=== PATIENT | male | born 1945 | race Caucasian/White ===

== ENCOUNTER 2017-10-01 17:36 | Emergency (ER) | payer OTHER ==
[2017-10-01 17:41] VITALS: BMI 29.8
--- NOTE | 2017-10-01 18:24 | DR.GENAD ---
HPI - PCP Primary Care Physician: THOR - Complaint/Symptoms Chief Complaint Doctors Comments: hurting in left lower ribs since yesterday. He describes this as intermittent, and sharp/throbbing. He denies sob or cough. There is no exacerbating or relieving factor. Chief Complaint:: PT. C/O PAIN IN LEFT SIDE BELOW RIB CAGE WHICH BEGAN YESTERDAY. - Nurses notes reviewed Nurses Notes Review: Yes - Source History Provided: Patient - Mode of Arrival Mode of Arrival: Ambulatory - Timing Onset of Chief Complaint: 09/30/17 Came on: Gradually PMH - PMH Past Medical History: Yes Past Medical History: Arthritis, COPD, Coronary Artery Disease, Diabetes, Gout, Hypertension, [place], Renal Disease Past Medical History Comment: ABSTESOS Past Surgical History: Yes Surgical History: CABG/Valve Surgery, Tonsillectomy, Other Past Surgical History Comment: CERVICAL FUSION, WRIST - Family History History of Family Medical Conditions: Yes Family Medical History: Diabetes Mellitus, [place], Coronary Artery Disease - Social History Does patient currently use any type of tobacco product: No Have you used tobacco products in the last 12 months: No Type of Tobacco Use: None Does any household member use tobacco: No Alcohol Use: None Do you use any recreational Drugs:: No Lives With: Spouse Lives Where: Home - infectious screening In the last 2 months have you had wt loss of >10#?: NO Have you had fever, night sweats or hemotysis?: No Have you traveled outside the country in the last 6 months?: No Isolation: Standard ROS - Review of Systems Constitutional: No Symptoms Reported Eyes: No Symptoms Reported ENTM: No Symptoms Reported Respiratoy: No Symptoms Reported Cardiovascular: No Symptoms Reported Gastrointestinal/Abdominal: No Symptoms Reported Genitourinary: No Symptoms Reported Neurological: No Symptoms Reported Musculoskeletal: Rib(s) (left) Integumentary: No Symptoms Reported Hematologic/Lymphatic: No Symptoms Reported Endocrine: No Symptoms Reported Psychiatric: No Symptoms Reported All Other Systems: Reviewed and Negative PE - Vital Signs Vitals: Temperature 98.7 F Pulse Rate 60 Respiratory Rate 17 Blood Pressure 188/76 O2 Sat by Pulse Oximetry 97 - General Limitations: No Limitations General Appearance: Alert, In No Apparent Distress - Head Head Exam: Normal Inspection - Eyes Eye exam: Normal Appearance - ENT ENT Exam: Normal Exam - Neck Neck Exam: Normal Inspection - Chest Chest Inspection: Normal Inspection - Respiratory Respiratory Exam: Normal Lung Sounds Bilat - Cardiovascular Cardiovascular Exam: Regular Rate, Normal Rhythm - Abdominal Exam Abdominal Exam: Normal Inspection, Normal Bowel Sounds, Soft - Extremities Extremities Exam: Normal Inspection - Back Back Exam: Normal Inspection - Neurologic Neurological Exam: Alert, Oriented X3 - Psychiatric Psychiatric Exam: Normal Affect, Normal Mood - Skin Skin Exam: Warm, Dry, Intact, Normal Color ROR - Labs Reviewed Laboratory: Specimen Type Clean catch urine 10/01/17 19:34 Urine Color Yellow (YELLOW) 10/01/17 19:34 Urine Appearance Clear (CLEAR) 10/01/17 19:34 Urine pH 5.0 (5.0 - 8.0) 10/01/17 19:34 Ur Specific [place] 1.020 (1.000-1.030) 10/01/17 19:34 Urine Protein 4+ (NEGATIVE) 10/01/17 19:34 Urine Glucose (UA) Negative (NEGATIVE) 10/01/17 19:34 Urine Ketones Negative (NEGATIVE) 10/01/17 19:34 Urine Occult Blood 1+ (NEGATIVE) 10/01/17 19:34 Urine Nitrite Negative (NEGATIVE) 10/01/17 19:34 Urine Bilirubin Negative (NEGATIVE) 10/01/17 19:34 Urine Urobilinogen Normal (NORMAL) 10/01/17 19:34 Ur Leukocyte Esterase Negative (NEGATIVE) 10/01/17 19:34 Urine RBC None seen /HPF (NONE SEEN) 10/01/17 19:34 Urine WBC None seen /HPF (NONE SEEN) 10/01/17 19:34 Ur Squamous Epith Cells Rare /HPF (NEGATIVE) 10/01/17 19:34 Amorphous Sediment Trace /HPF (NEGATIVE) 10/01/17 19:34 Urine Bacteria Negative /HPF (NEGATIVE) 10/01/17 19:34 Ur Culture Indicated? No/not indicated 10/01/17 19:34 - XRAY XRAY Interpreted by: Radiologist (s/p CABG, no acute rib fx. Pleural deformity at Lt. base - pleural thickening vs. effusion.) - Diagnosis Discharge Problem: Pleuritic chest pain, Pleural thickening - Discharge Plan Disposition: HOME, SELF-CARE Condition: Stable - Follow ups/Referrals Follow ups/Referrals: TAMMIE MCRAE [Primary Care Provider] - 3 days - Instructions Instructions: Chest Wall Pain, [id number]
[2017-10-01] MEDS ORDERED: NORCO 5/325 MG TAB PO ONE (19:00)
--- NOTE | 2017-10-01 19:12 | RAD ---
Examination: Chest and left ribs, five views History: Pain in left side, diabetes and hypertension Comparison reference: None Findings: Heart size normal with sternal wires, clear lungs. No pneumothorax seen. There is blunting deformity of the left costophrenic angle. No acute fracture or bone destruction is noted in the left ribs. Impression: Status post CABG. No acute rib fracture demonstrated. Pleural deformity at the left base may represent chronic pleural thickening or a small left pleural effusion. Reported By:
[2017-10-01] MEDS ORDERED: NORCO 5/325 MG TAB ONE (19:31)
[2017-10-01 19:48] LABS: BILIRUBIN,URINE NEGATIVE (NEGATIVE); BLOOD/HEMOGLOBIN,URINE 1+ (NEGATIVE); GLUCOSE, URINE NEGATIVE (NEGATIVE); KETONES,URINE NEGATIVE (NEGATIVE); LEUKOCYTE ESTERASE ,URINE NEGATIVE (NEGATIVE); NITRITES,URINE NEGATIVE (NEGATIVE); PROTEIN,URINE 4+ (NEGATIVE); UROBILINOGEN,URINE NORMAL (NORMAL)
[2017-10-01 19:53] LABS: APPEARANCE,URINE CLEAR (CLEAR); COLOR,URINE YELLOW (YELLOW)
[2017-10-01 20:00] LABS: RBC,URINE NONE SEEN /HPF (NONE SEEN); SQUAMOUS EPITHELIAL CELL,UR RARE /HPF (NEGATIVE)
[2017-10-01 20:01] LABS: AMORPHOUS SEDIMENT,UR TRACE /HPF (NEGATIVE); BACTERIA,URINE NEGATIVE /HPF (NEGATIVE)
[2017-10-01 20:21] VITALS: BP 168/86
== END 2017-10-01 20:21 | disposition home or self-care (01) ==
LOC: ER 17:49
DX: R07.81 Pleurodynia (principal); J94.8 Other specified pleural conditions; Z95.1 Presence of aortocoronary bypass graft
CPT/HCPCS: 71111; 81001; 99282

== ENCOUNTER 2019-07-22 09:08 | Observation (INO) ==
[~2019-07-22 09:08] MED LIST: ATROPINE SULFATE ONE; DIPRIVAN VIAL ONE; NEOSTIGMINE INJ ONE; NORCURON INJ 10 MG VIAL ONE; QUELICIN (OR ANECTINE) ONE; ROBINUL ONE; SUPRANE ONE; VERSED ONE; ZOFRAN INJ 4 MG VIAL ONE
[2019-07-22 09:26] VITALS: BMI 30.5
[2019-07-22 10:41] LABS: BASOPHILS # (AUTO) 0.1 X10^3/uL (0.0-0.1); BASOPHILS % (AUTO) 0.5 % (0.2-1.0); EOSINOPHILS % (AUTO) 0.3 % (0.9-2.9); HEMATOCRIT 37.6 % (42.0-54.0); HEMOGLOBIN 12.4 g/dL (13.5-18.0); LYMPHOCYTES % (AUTO) 7.5 % (21.0-51.0); MEAN CORPUSCULAR HEMOGLOBIN 28.7 pg (27.0-34.0); MEAN CORPUSCULAR VOLUME 87.1 fL (80.0-100.0); MEAN PLATELET VOLUME 6.7 fL (7.4-11.0); MONOCYTES # (AUTO) 0.7 x10^3/uL (0.3-0.8); MONOCYTES % (AUTO) 5.5 % (0.0-13.0); NEUTROPHILS % (AUTO) 86.2 % (42.0-75.0); PLATELET COUNT 188 X10^3/uL (150.0-450.0); RED BLOOD COUNT 4.32 X10^6/uL (4.7-6.0); RED CELL DISTRIBUTION WIDTH 14.7 % (11.6-16.5); WHITE BLOOD COUNT 12.7 X10^3/uL (3.6-10.0)
[2019-07-22 10:52] LABS: ALANINE AMINOTRANSFERASE 25 Units/L (12-78); ALBUMIN 3.7 g/dL (3.4-5.0); ALKALINE PHOSPHATASE 75 Units/L (46-116); AMYLASE 83 Units/L (25-115); ASPARTATE AMINO TRANSFERASE 33 Units/L (15-37); BLOOD UREA NITROGEN 25 mg/dL (7-18); CALCIUM 8.4 mg/dL (8.5-10.1); CARBON DIOXIDE 27.6 mmol/L (21-32); CHLORIDE 104 mmol/L (98-107); COR NA(FOR HYPERGLY) 141 mmol/L (136-145); CREATININE 2.11 mg/dL (0.70-1.30); LIPASE 253 Units/L (73-393); SODIUM 139 mmol/L (136-145); TOTAL PROTEIN 7.2 g/dL (6.4-8.2); eGFR NON BLACK RACES 33 (>60)
--- NOTE | 2019-07-22 12:16 | DR.ABDMALE ---
HPI Time seen Time Seen by Provider: 07/22/19 10:12 PCP Primary Care Physician: THOR Christie Chief Complaint:: HURTING ON RIGHT SIDE, WOKE UP AT 4 AM HURTING LIKE HELL IN RIGHT SIDE. TRIED TO GO TO BATHROOM WIHT NO SUCCESS. DENIES PAIN OR BURNING WHEN URINATE. Mode of arrival Mode of Arrival: Ambulatory Timing Onset of Chief Complaint: 07/22/19 PMH PMH Past Medical History: Yes Past Medical History: Arthritis, COPD, Coronary Artery Disease, Diabetes, Gout, Hypertension, [place] and Renal Disease Past Surgical History: Yes Surgical History: CABG/Valve Surgery, Ortho Surgery, Tonsillectomy and Other Past Surgical History Comment: SPINAL INFUSION, WRIST, SHOULDER Family History History of Family Medical Conditions: Yes Family Medical History: Diabetes Mellitus, [place] and Coronary Artery Disease Social History Does any household member use tobacco: No Alcohol Use: None Do you use any recreational Drugs:: No Lives With: Spouse Lives Where: Home infectious screening In the last 2 months have you had wt loss of >10#?: NO Have you had fever, night sweats or hemotysis?: No Have you traveled outside the country in the last 6 months?: No Isolation: Standard ROS Review of Systems Constitutional: No Symptoms Reported ENTM: No Symptoms Reported Respiratoy: No Symptoms Reported Cardiovascular: No Symptoms Reported Gastrointestinal/Abdominal: Abdominal Pain Genitourinary: No Symptoms Reported Neurological: No Symptoms Reported Musculoskeletal: No Symptoms Reported PE Vital Signs Vital Signs: Temp Pulse Resp BP BP Pulse Ox 07/22/19 17:29 99 07/22/19 12:28 22 07/22/19 09:22 97.4 F L 58 L 20 134/63 100 10/01/17 20:21 168/86 General Limitations: No Limitations General Appearance: Alert and In No Apparent Distress Head Head Exam: Normal Inspection Eyes Eye exam: Normal Appearance Neck Neck Exam: Normal Inspection Respiratory Respiratory Exam: Normal Lung Sounds Bilat Respiratory Exam: Bilateral: Clear to Auscultation Cardiovascular Cardiovascular Exam: Regular Rate Abdominal Exam Abdominal Exam: Normal Bowel Sounds, Soft and Tenderness Abdominal Tenderness: RLQ and Moderate Back Back Exam: Normal Inspection Neurologic Neurological Exam: Alert, Oriented X3 and CN II-XII Intact Skin Skin Exam: Warm and Dry COURSE Treatment Treatment: Zosyn 3.375mg IV ( appendicitis) Care was assumed by the surgeon and patient left the ED at 14:08 ROR Labs Reviewed Result Diagrams: 07/22/19 10:36 07/22/19 10:36 Laboratory: WBC 12.7 X10^3/uL (3.6-10.0) H 07/22/19 10:36 RBC 4.32 X10^6/uL (4.7-6.0) L 07/22/19 10:36 Hgb 12.4 g/dL (13.5-18.0) L 07/22/19 10:36 Hct 37.6 % (42.0-54.0) L 07/22/19 10:36 MCV 87.1 fL (80.0-100.0) 07/22/19 10:36 MCH 28.7 pg (27.0-34.0) 07/22/19 10:36 MCHC 33.0 g/dL (33.0-35.0) 07/22/19 10:36 RDW 14.7 % (11.6-16.5) 07/22/19 10:36 Plt Count 188 X10^3/uL (150.0-450.0) 07/22/19 10:36 MPV 6.7 fL (7.4-11.0) L 07/22/19 10:36 Neut % (Auto) 86.2 % (42.0-75.0) H 07/22/19 10:36 Lymph % (Auto) 7.5 % (21.0-51.0) L 07/22/19 10:36 [place] % (Auto) 5.5 % (0.0-13.0) 07/22/19 10:36 Eos % (Auto) 0.3 % (0.9-2.9) L 07/22/19 10:36 Baso % (Auto) 0.5 % (0.2-1.0) 07/22/19 10:36 Neut # (Auto) 11.0 x10^3/uL (2.2-4.8) H 07/22/19 10:36 Lymph # (Auto) 1.0 X10^3/uL (1.3-2.9) L 07/22/19 10:36 [place] # (Auto) 0.7 x10^3/uL (0.3-0.8) 07/22/19 10:36 Eos # (Auto) 0.0 x10^3/uL (0.0-0.2) 07/22/19 10:36 Baso # (Auto) 0.1 X10^3/uL (0.0-0.1) 07/22/19 10:36 Absolute Nucleated RBC 0.0 /100WBC 07/22/19 10:36 Sodium 139 mmol/L (136-145) 07/22/19 10:36 Corrected Sodium 141 mmol/L (136-145) 07/22/19 10:36 Potassium 3.8 mmol/L (3.5-5.1) 07/22/19 10:36 Chloride 104 mmol/L (98-107) 07/22/19 10:36 Carbon Dioxide 27.6 mmol/L (21-32) 07/22/19 10:36 BUN 25 mg/dL (7-18) H 07/22/19 10:36 Creatinine 2.11 mg/dL (0.70-1.30) H 07/22/19 10:36 Est GFR (MDRD) Af Amer 40 (>60) L 07/22/19 10:36 Est GFR (MDRD) Non-Af 33 (>60) L 07/22/19 10:36 Glucose 176 mg/dL (65-99) H 07/22/19 10:36 POC Glucose (mg/dL) 165 mg/dL (65-99) H 07/22/19 13:47 Calcium 8.4 mg/dL (8.5-10.1) L 07/22/19 10:36 Corrected Calcium TNP 07/22/19 10:36 Total Bilirubin 0.30 mg/dL (0.2-1.0) 07/22/19 10:36 AST 33 Units/L (15-37) 07/22/19 10:36 ALT 25 Units/L (12-78) 07/22/19 10:36 Alkaline Phosphatase 75 Units/L (46-116) 07/22/19 10:36 Total Protein 7.2 g/dL (6.4-8.2) 07/22/19 10:36 Albumin 3.7 g/dL (3.4-5.0) 07/22/19 10:36 Globulin 3.5 g/dL (2.5-4.5) 07/22/19 10:36 Albumin/Globulin Ratio 1.1 Ratio (1.1-2.1) 07/22/19 10:36 Amylase 83 Units/L (25-115) 07/22/19 10:36 Lipase 253 Units/L (73-393) 07/22/19 10:36 Specimen Type Random urine 07/22/19 12:23 Urine Color Yellow (YELLOW) 07/22/19 12:23 Urine Appearance Hazy (CLEAR) 07/22/19 12:23 Urine pH 5.0 (5.0 - 8.0) 07/22/19 12:23 Ur Specific [place] 1.020 (1.000-1.030) 07/22/19 12:23 Urine Protein 4+ (NEGATIVE) 07/22/19 12:23 Urine Glucose (UA) 4+ (NEGATIVE) 07/22/19 12:23 Urine Ketones 1+ (NEGATIVE) 07/22/19 12:23 Urine Occult Blood 2+ (NEGATIVE) 07/22/19 12:23 Urine Nitrite Negative (NEGATIVE) 07/22/19 12:23 Urine Bilirubin Negative (NEGATIVE) 07/22/19 12:23 Urine Urobilinogen Normal (NORMAL) 07/22/19 12:23 Ur Leukocyte Esterase Negative (NEGATIVE) 07/22/19 12:23 Urine RBC 0-2 /HPF (0-3) 07/22/19 12:23 Urine WBC None seen /HPF (0-5) 07/22/19 12:23 Ur Squamous Epith Cells Negative /HPF (NEGATIVE) 07/22/19 12:23 Urine Bacteria Negative /HPF (NEGATIVE) 07/22/19 12:23 Urine Mucus Few /HPF (NEGATIVE) 07/22/19 12:23 Ur Culture Indicated? No/not indicated 07/22/19 12:23 Opioid Opioid Risk Tool Total: 0 Total Score Risk Category: Low Risk Copyright: Gabino SCHROEDER predicting aberrant behaviors Diagnosis Discharge Problem: Acute appendicitis Qualifiers: Acute appendicitis type: with localized peritonitis Instructions Forms: Excuse From Work Patient Portal
[2019-07-22] MEDS ORDERED: TORADOL 30 MG VIAL IVP ONE (12:21)
[2019-07-22] MEDS ORDERED: TORADOL 30 MG VIAL ONE (12:22)
[2019-07-22 12:49] LABS: BILIRUBIN,URINE NEGATIVE (NEGATIVE); BLOOD/HEMOGLOBIN,URINE 2+ (NEGATIVE); GLUCOSE, URINE 4+ (NEGATIVE); KETONES,URINE 1+ (NEGATIVE); LEUKOCYTE ESTERASE ,URINE NEGATIVE (NEGATIVE); NITRITES,URINE NEGATIVE (NEGATIVE); PROTEIN,URINE 4+ (NEGATIVE); UROBILINOGEN,URINE NORMAL (NORMAL)
[2019-07-22 12:54] LABS: APPEARANCE,URINE HAZY (CLEAR); COLOR,URINE YELLOW (YELLOW)
[2019-07-22 12:55] LABS: BACTERIA,URINE NEGATIVE /HPF (NEGATIVE); MUCUS,URINE FEW /HPF (NEGATIVE); RBC,URINE 0-2 /HPF (0-3); SQUAMOUS EPITHELIAL CELL,UR NEGATIVE /HPF (NEGATIVE)
[2019-07-22] MEDS ORDERED: NS 100 ML IV + SPIKE MINIBAG* 100 ML IV ONE (13:12)
[2019-07-22] MEDS ORDERED: ZOSYN VIAL 3.375 GRAMS IV ONE (13:13)
[2019-07-22] MEDS ORDERED: DILAUDID INJ ONE (13:52)
[2019-07-22] MEDS ORDERED: FENTANYL INJ 100 mcg ONE (13:53)
[2019-07-22] MEDS ORDERED: LR 1000 ML IV 1,000 ML IV ONE (14:21)
[2019-07-22] MEDS ORDERED: BACTROBAN TOPICAL OINT ONE (15:25)
[2019-07-22] MEDS ORDERED: D5 1/2 NS 1000 ML 1,000 ML IV ONE (16:13)
--- NOTE | 2019-07-22 17:10 | CT ---
HISTORYRight lower quadrant painSTUDYABDOMEN/PELVIS W/O CONTechnique: Axial noncontrast images with coronal and sagittal reformats. Dose reduction procedures were used with mA/kv adjusted for body size. THIS EXAMINATION IS LIMITED DUE TO THE LACK OF INTRAVENOUS AND ORAL CONTRAST. The examination was performed in this manner at the SOLE discretion of the ordering caregiver and without input from Radiology.COMPARISONNoneFINDINGSThe lung bases are clear. There is some pleural thickening and pleural calcification on the left which could be due to prior asbestos exposure or perhaps prior hemo thorax. The liver, spleen, adrenal glands, and pancreas are within normal limits only to the limitations of an unenhanced examination. No opaque stones are visible within the gallbladder. The kidneys are unobstructed and without stones. No ureteral calculi are identified. Calcific atherosclerotic change is present in a nondilated abdominal aorta. No intraperitoneal or retroperitoneal lymphadenopathy of significance is identified. There is a large appendicoliths at the orifice of the appendix. There is dilatation of the appendix proximal to the appendix cholelith maximum diameter 15 mm. There is periappendiceal inflammation present. Findings are consistent with acute appendicitis. Surgical evaluation is recommended. Examination of the pelvis demonstrated no evidence for pelvic masses, pelvic fluid, or pelvic lymphadenopathy. No bladder abnormality is identified. No lytic or blastic skeletal lesions are identified.IMPRESSIONLarge appendicolith at the orifice of the appendix with findings suggestive of acute appendicitis. Surgical consultation is recommended.Electronically signed by: RIGOBERTO NUNO (Jul 22, 2019 12:48:24)
[2019-07-22] MEDS ORDERED: ZOFRAN INJ 4 MG VIAL IV PRN (18:02)
--- NOTE | 2019-07-22 18:08 | RAD ---
HISTORYPreopSTUDYPortable AP chestCOMPARISONNoneFINDINGSNormal heart size with sternal wires, clear lungs and right pleural space. There is blunting of the left costophrenic angle. The left lower cardiac margin is indistinct. No consolidation or pulmonary edema noted.IMPRESSIONPrevious sternotomy. Indistinct left lower cardiac margin may represent lingular infiltrate but is more likely related to pleural-pericardial adhesion. Deformity of the left costophrenic angle is probably chronic pleural thickening although a small pleural effusion is not excluded. Comparison with prior imaging would be confirm stability.Electronically signed by: ALYCIA LAY (Jul 22, 2019 14:20:09)
[2019-07-22] MEDS: PROVENTIL NEB TX 0.083% 2.5MG/ 3ML NEB SCH (20:40)
[2019-07-22] MEDS: ZOSYN VIAL 3.375 GRAMS 3.375 G in NS 100 ML IV + SPIKE MINIBAG* 100 ML IV SCH (21:44)
[2019-07-22] MEDS: DILAUDID INJ IVP PRN (21:44)
[2019-07-22] MEDS ORDERED: HumuLIN R SUBCUT ONE (22:21)
[2019-07-22] MEDS ORDERED: HumaLOG SC ONE (22:25)
[2019-07-22] MEDS ORDERED: HumuLIN R ONE (22:26)
[2019-07-22] MEDS: D5 1/2 NS 1000 ML 1,000 ML IV SCH (22:31)
[2019-07-23] MEDS: D5 1/2 NS 1000 ML 1,000 ML IV SCH ×3 (00:24→08:32)
[2019-07-23] MEDS: ZOSYN VIAL 3.375 GRAMS 3.375 G in NS 100 ML IV + SPIKE MINIBAG* 100 ML IV SCH ×3 (05:25→22:33)
[2019-07-23 05:50] LABS: ALBUMIN 2.9 g/dL (3.4-5.0); CALCIUM 7.6 mg/dL (8.5-10.1); CARBON DIOXIDE 29.2 mmol/L (21-32); COR CA(FOR HYPOALB) 8.5 mg/dL (8.5-10.1); CREATININE 2.42 mg/dL (0.70-1.30)
[2019-07-23 06:09] LABS: BASOPHILS % (AUTO) 0.2 % (0.2-1.0); EOSINOPHILS # (AUTO) 0.1 x10^3/uL (0.0-0.2); EOSINOPHILS % (AUTO) 0.8 % (0.9-2.9); HEMATOCRIT 32.8 % (42.0-54.0); LYMPHOCYTES % (AUTO) 11.7 % (21.0-51.0); MEAN CORPUSCULAR HEMOGLOBIN 29.2 pg (27.0-34.0); MEAN CORPUSCULAR HGB CONC 33.4 g/dL (33.0-35.0); MEAN CORPUSCULAR VOLUME 87.2 fL (80.0-100.0); MONOCYTES # (AUTO) 0.9 x10^3/uL (0.3-0.8); MONOCYTES % (AUTO) 9.8 % (0.0-13.0); NEUTROPHILS # (AUTO) 6.8 x10^3/uL (2.2-4.8); NEUTROPHILS % (AUTO) 77.5 % (42.0-75.0); PLATELET COUNT 174 X10^3/uL (150.0-450.0); RED BLOOD COUNT 3.76 X10^6/uL (4.7-6.0); RED CELL DISTRIBUTION WIDTH 14.5 % (11.6-16.5); WHITE BLOOD COUNT 8.8 X10^3/uL (3.6-10.0)
[2019-07-23] MEDS: LOVENOX INJ 40 MG SYR SC SCH (08:32)
[2019-07-23] MEDS: PROVENTIL NEB TX 0.083% 2.5MG/ 3ML NEB SCH ×2 (09:10→20:30)
--- NOTE | 2019-07-23 09:30 | DR.PROGNOT ---
Hospital Progress Notes - Progress Note for Day of: Progress Note Date: 07/23/19 - Chief Complaint Chief Complaint: post op lap appendectomy day 1 . doing well , mild abdominal pain . tolerating diet . moderate drainage in NILESH . afebrile . - Past Medical Family Social History Past Med/Fam/Surg Hx: No changes since H&P Allergies: Allergies hydrocodone Adverse Reaction (Verified 07/22/19 09:27) - Review Of Systems ROS: No change since H&P - Vital Signs Vital Signs: Temperature 98.6 F Pulse Rate [Apical] 59 Pulse Rate 58 Respiratory Rate 15 Blood Pressure [Right Arm] 169/75 Blood Pressure [Left Arm] 168/86 Blood Pressure 142/64 O2 Sat by Pulse Oximetry 98 - Physical Exam Oriented: Normal Eyes: Normal Ear: Normal Nose: Normal Throat: Normal Respiratory: Normal Cardiovascular: Irregular GI:Auscultation: Decreased GI:Palpation: Normal GI: Tenderness: Diffuse Skin: Normal Mood Description: Calm Speech Pattern: Clear, Appropriate - Laboratory and Diagnostics Result Diagrams: 07/23/19 04:22 07/23/19 04:22 Labs: Laboratory WBC 8.8 X10^3/uL (3.6-10.0) 07/23/19 04:22 RBC 3.76 X10^6/uL (4.7-6.0) L 07/23/19 04:22 Hgb 11.0 g/dL (13.5-18.0) L 07/23/19 04:22 Hct 32.8 % (42.0-54.0) L 07/23/19 04:22 MCV 87.2 fL (80.0-100.0) 07/23/19 04:22 MCH 29.2 pg (27.0-34.0) 07/23/19 04:22 MCHC 33.4 g/dL (33.0-35.0) 07/23/19 04:22 RDW 14.5 % (11.6-16.5) 07/23/19 04:22 Plt Count 174 X10^3/uL (150.0-450.0) 07/23/19 04:22 MPV 7.0 fL (7.4-11.0) L 07/23/19 04:22 Neut % (Auto) 77.5 % (42.0-75.0) H 07/23/19 04:22 Lymph % (Auto) 11.7 % (21.0-51.0) L 07/23/19 04:22 [place] % (Auto) 9.8 % (0.0-13.0) 07/23/19 04:22 Eos % (Auto) 0.8 % (0.9-2.9) L 07/23/19 04:22 Baso % (Auto) 0.2 % (0.2-1.0) 07/23/19 04:22 Neut # (Auto) 6.8 x10^3/uL (2.2-4.8) H 07/23/19 04:22 Lymph # (Auto) 1.0 X10^3/uL (1.3-2.9) L 07/23/19 04:22 [place] # (Auto) 0.9 x10^3/uL (0.3-0.8) H 07/23/19 04:22 Eos # (Auto) 0.1 x10^3/uL (0.0-0.2) 07/23/19 04:22 Baso # (Auto) 0.0 X10^3/uL (0.0-0.1) 07/23/19 04:22 Absolute Nucleated RBC 0.0 /100WBC 07/23/19 04:22 PT 14.0 SECONDS (11.8-14.3) 07/22/19 13:39 INR Target Range - 07/22/19 13:39 INR 1.12 (0.8-1.3) 07/22/19 13:39 APTT 30.0 SECONDS (22.9-36.5) 07/22/19 13:39 PTT Comment - 07/22/19 13:39 Sodium 138 mmol/L (136-145) 07/23/19 04:22 Corrected Sodium 141 mmol/L (136-145) 07/23/19 04:22 Potassium 3.7 mmol/L (3.5-5.1) 07/23/19 04:22 Chloride 103 mmol/L (98-107) 07/23/19 04:22 Carbon Dioxide 29.2 mmol/L (21-32) 07/23/19 04:22 BUN 26 mg/dL (7-18) H 07/23/19 04:22 Creatinine 2.42 mg/dL (0.70-1.30) H 07/23/19 04:22 Est GFR (MDRD) Af Amer 34 (>60) L 07/23/19 04:22 Est GFR (MDRD) Non-Af 28 (>60) L 07/23/19 04:22 Glucose 213 mg/dL (65-99) H 07/23/19 04:22 POC Glucose (mg/dL) 218 mg/dL (65-99) H 07/23/19 05:41 Calcium 7.6 mg/dL (8.5-10.1) L 07/23/19 04:22 Corrected Calcium 8.5 mg/dL (8.5-10.1) 07/23/19 04:22 Total Bilirubin 0.40 mg/dL (0.2-1.0) 07/23/19 04:22 AST 22 Units/L (15-37) 07/23/19 04:22 ALT 19 Units/L (12-78) 07/23/19 04:22 Alkaline Phosphatase 58 Units/L (46-116) 07/23/19 04:22 Total Protein 6.0 g/dL (6.4-8.2) L 07/23/19 04:22 Albumin 2.9 g/dL (3.4-5.0) L 07/23/19 04:22 Globulin 3.1 g/dL (2.5-4.5) 07/23/19 04:22 Albumin/Globulin Ratio 0.9 Ratio (1.1-2.1) L 07/23/19 04:22 Amylase 83 Units/L (25-115) 07/22/19 10:36 Lipase 253 Units/L (73-393) 07/22/19 10:36 Specimen Type Random urine 07/22/19 12:23 Urine Color Yellow (YELLOW) 07/22/19 12:23 Urine Appearance Hazy (CLEAR) 07/22/19 12:23 Urine pH 5.0 (5.0 - 8.0) 07/22/19 12:23 Ur Specific [place] 1.020 (1.000-1.030) 07/22/19 12:23 Urine Protein 4+ (NEGATIVE) 07/22/19 12:23 Urine Glucose (UA) 4+ (NEGATIVE) 07/22/19 12:23 Urine Ketones 1+ (NEGATIVE) 07/22/19 12:23 Urine Occult Blood 2+ (NEGATIVE) 07/22/19 12:23 Urine Nitrite Negative (NEGATIVE) 07/22/19 12:23 Urine Bilirubin Negative (NEGATIVE) 07/22/19 12:23 Urine Urobilinogen Normal (NORMAL) 07/22/19 12:23 Ur Leukocyte Esterase Negative (NEGATIVE) 07/22/19 12:23 Urine RBC 0-2 /HPF (0-3) 07/22/19 12:23 Urine WBC None seen /HPF (0-5) 07/22/19 12:23 Ur Squamous Epith Cells Negative /HPF (NEGATIVE) 07/22/19 12:23 Urine Bacteria Negative /HPF (NEGATIVE) 07/22/19 12:23 Urine Mucus Few /HPF (NEGATIVE) 07/22/19 12:23 Ur Culture Indicated? No/not indicated 07/22/19 12:23 Tissue Pathology To follow 07/22/19 15:15 - Assessment and Plan 1: aCUTE RETROCECAL APPENDICITIS , s/p LAP APPENDECTOMY . on full liquid . IVF and ATB . OOB , on Lovenox and diabetic meds . - Problem Patient Problems: Patient Problems Acute appendicitis (Acute) K35.80
[2019-07-23] MEDS: NS 1000 ML 1,000 ML IV SCH ×2 (10:28→22:55)
[2019-07-23] MEDS: HumuLIN R SUBCUT PRN ×3 (10:46→22:34)
[2019-07-23] MEDS: DILAUDID INJ IVP PRN ×2 (13:42→23:04)
[2019-07-23] MEDS ORDERED: SYNTHROID 50 mcg TAB PO SCH (17:00)
[2019-07-23] MEDS ORDERED: INVOKANA PO SCH (17:00)
[2019-07-23] MEDS ORDERED: NORVASC TAB 5 MG ONE (18:09)
[2019-07-23] MEDS ORDERED: SYNTHROID 50 mcg TAB ONE (18:09)
[2019-07-23] MEDS ORDERED: ISOSORBIDE MONONITRATE ER PO ONE (18:09)
[2019-07-23] MEDS ORDERED: ZESTRIL TAB 40 MG ONE (18:10)
[2019-07-23] MEDS ORDERED: ZYLOPRIM ONE (18:10)
[2019-07-23] MEDS: ZYLOPRIM PO SCH (18:20)
[2019-07-23] MEDS: NORVASC TAB 5 MG PO SCH (18:20)
[2019-07-23] MEDS: ISOSORBIDE MONONITRATE ER PO SCH (18:20)
[2019-07-23] MEDS: ZESTRIL TAB 40 MG PO SCH (18:21)
[2019-07-23] MEDS ORDERED: SNACK - Diabetic Appropriate PO SCH (20:00)
[2019-07-23] MEDS: NITRODUR PATCH 0.4 MG/HR TD SCH (20:20)
[2019-07-23] MEDS ORDERED: CATAPRES TAB 0.1 MG PO PRN (20:38)
[2019-07-23] MEDS ORDERED: APRESOLINE INJ 20 MG VIAL IVP PRN (20:40)
[2019-07-23] MEDS ORDERED: APRESOLINE INJ 20 MG VIAL ONE (20:50)
[2019-07-23] MEDS ORDERED: ZETIA TAB 10 MG PO SCH (21:00)
[2019-07-23] MEDS ORDERED: ZOCOR TAB 40 MG PO SCH (21:00)
[2019-07-23] MEDS: LOPRESSOR TAB 25 MG PO SCH (22:29)
[2019-07-24] MEDS: NS 1000 ML 1,000 ML IV SCH (01:37)
[2019-07-24] MEDS: ZOSYN VIAL 3.375 GRAMS 3.375 G in NS 100 ML IV + SPIKE MINIBAG* 100 ML IV SCH (05:24)
[2019-07-24] MEDS: HumuLIN R SUBCUT PRN ×2 (05:32→13:13)
[2019-07-24 05:34] LABS: BASOPHILS % (AUTO) 0.1 % (0.2-1.0); EOSINOPHILS # (AUTO) 0.1 x10^3/uL (0.0-0.2); EOSINOPHILS % (AUTO) 1.2 % (0.9-2.9); HEMATOCRIT 29.5 % (42.0-54.0); LYMPHOCYTES # (AUTO) 0.7 X10^3/uL (1.3-2.9); LYMPHOCYTES % (AUTO) 8.2 % (21.0-51.0); MEAN CORPUSCULAR HGB CONC 34.1 g/dL (33.0-35.0); MEAN PLATELET VOLUME 7.6 fL (7.4-11.0); MONOCYTES # (AUTO) 0.7 x10^3/uL (0.3-0.8); MONOCYTES % (AUTO) 7.7 % (0.0-13.0); NEUTROPHILS # (AUTO) 7.1 x10^3/uL (2.2-4.8); NEUTROPHILS % (AUTO) 82.8 % (42.0-75.0); PLATELET COUNT 166 X10^3/uL (150.0-450.0); RED BLOOD COUNT 3.35 X10^6/uL (4.7-6.0); RED CELL DISTRIBUTION WIDTH 14.8 % (11.6-16.5); WHITE BLOOD COUNT 8.5 X10^3/uL (3.6-10.0)
[2019-07-24 05:41] LABS: ALBUMIN 2.7 g/dL (3.4-5.0); CALCIUM 7.6 mg/dL (8.5-10.1); CARBON DIOXIDE 28.4 mmol/L (21-32); COR CA(FOR HYPOALB) 8.6 mg/dL (8.5-10.1); CREATININE 2.31 mg/dL (0.70-1.30); TOTAL PROTEIN 5.8 g/dL (6.4-8.2)
[2019-07-24] MEDS ORDERED: DILAUDID INJ IVP PRN (08:00)
[2019-07-24] MEDS: PROVENTIL NEB TX 0.083% 2.5MG/ 3ML NEB SCH (08:26)
[2019-07-24] MEDS: LOVENOX INJ 40 MG SYR SC SCH (08:54)
[2019-07-24] MEDS: LOPRESSOR TAB 25 MG PO SCH (08:55)
[2019-07-24] MEDS: ZESTRIL TAB 40 MG PO SCH (08:55)
[2019-07-24] MEDS: ZYLOPRIM PO SCH (08:55)
[2019-07-24] MEDS: NORVASC TAB 5 MG PO SCH (08:55)
[2019-07-24] MEDS: NITRODUR PATCH 0.4 MG/HR TD SCH (08:56)
[2019-07-24] MEDS: ISOSORBIDE MONONITRATE ER PO SCH (08:56)
[2019-07-24] MEDS ORDERED: INVOKANA PO SCH (09:00)
[2019-07-24 13:46] VITALS: BP 158/72
[2019-07-24] MEDS ORDERED: SYNTHROID 50 mcg TAB PO SCH (16:30)
--- NOTE | 2019-07-24 20:57 | DR.CONSULT ---
Consult - Consultation for Day of: Date: 07/23/19 - Chief Complaint Chief Complaint: ACUTE APPENDICITIS - History of Present Illness History of Present Illness: IS A 71 YEAR OLD PATIENT OF TAMMIE MCRAE WHO PRESENTED TO THE ER FOR RIGHT SIDED ABDOMINAL PAIN. CT REVEALED ACUTE APPENDICITIS. TOOK PATIENT TO THE OR FOR A LAPROSCOPIC APPENDECTOMY. WE WERE CONSULTED FOR MANAGEMENT OF HIS CHRONIC CONDITIONS. HE HAS A PMH OF C OPD, CAD, DIABETES, GOUT, HTN, [place] WITH STENT PLACEMENT, AND RENAL DISEASE. ON EXAMINATION, HE IS NOTED WITH SURGICAL DRESSINGS. DRESSINGS ARE DRY AND INTACT WITH NO SIGNS OR SX INFECTION NOTED. A GALDINO CAIN DRAIN IS NOTED WITH MINIMAL DRAINAGE. HIS VITALS THIS MORNING ARE: 98.6-60-14-97%-156/72. LABS WERE OBTAINED. ABNORMAL LAB VALUES INCLUDE THE FOLLOWING: RBC 3.76, HGB 11.0, HCT 32.8, BUN 21, CREATININE 2.31, GLUCOSE 220, CALCIUM 7.6, TOTAL PROTEIN 5.8, ALBUMIN 2.7. HE IS CURRENTLY RECEIVING D51/2NS AT 125ML/HR, IV ZOSYN, RESPIRATORY [place], DILAUDID IV PRN. TODAY, WE WILL CHANGE IV FLUIDS TO NORMAL SALINE AT 75ML/HR. OTHERWISE, WE WILL FOLLOW UP WITH AM LABS AND CONTINUE TO MONITOR. - Past Medical History Past Medical History: [place], Coronary Artery Disease, Hypertension, Diabetes, Renal Disease, COPD, Arthritis, Gout - Past Surgical History Surgical History: Appendectomy, CABG/Valve Surgery, Ortho Surgery, To nsillectomy, Other - Family History Family Medical History: Diabetes Mellitus, [place], Coronary Artery Disease - Social History Does patient currently use any type of tobacco product: (quit 1984) Have you used tobacco products in the last 12 months: No Type of Tobacco Use: None Does any household member use tobacco: No Alcohol Use: None Drug Use: None - Medications Home Medications: hydrocodone Adverse Reaction (Verified 07/22/19 09:27) CONTINUE taking the following medications RX: allopurinol 100 mg PO DAILY 07/22/19 [History] RX: amlodipine 5 mg PO DAILY 07/22/19 [History] RX: clopidogrel 75 mg PO DAILY 07/22/19 [History] RX: ergocalciferol (vitamin D2) 50,000 unit PO WEEKLY 07/22/19 [History] RX: ezetimibe-simvastatin 1 tab PO QHS 07/22/19 [History] RX: gabapentin See Rx Instructions .ROUTE .COMPLEX 07/22/19 [History] RX: isosorbide mononitrate 60 mg PO DAILY 07/22/19 [History] RX: levothyroxine 50 mcg PO DAILY 07/22/19 [History] RX: lisinopril 40 mg PO DAILY 07/22/19 [History] RX: metoprolol tartrate 25 mg PO BID 07/22/19 [History] RX: niacin 1,000 mg PO DAILY 07/22/19 [History] RX: nitroglycerin 1 patch TOPICAL DAILY 07/22/19 [History] aspirin [Aspirin Low Dose] 81 mg PO ONCE 07/22/19 [History] canagliflozin [Invokana] 100 mg PO DAILY 07/22/19 [History] fluticasone furoate-vilanterol [Breo Ellipta] 2 inh INHALATION DAILY 07/22/19 [History] insulin detemir U-100 [Levemir FlexTouch U-100 Insuln] 60 unit SUBCUT BID 07/22/19 [History] insulin lispro [Humalog U-100 Insulin] 5 - 10 unit SUBCUT ACHS PRN 07/22/19 [History] New Prescriptions hydrocodone-acetaminophen [[place]] 1 tab PO Q4H PRN #15 tab MDD 6 07/24/19 [Rx] - Review of Systems Constitutional: Fever, Weakness Eyes: No Symptoms Reported ENT: No Symptoms Reported Respiratory: No Symptoms Reported Cardiovascular: No Symptoms Reported Gastrointestinal: See HPI, Nausea, Abdominal Pain Genitourinary: No Symptoms Reported Musculoskeletal: No Symptoms Reported Skin: No Symptoms Reported Neurological: Weakness - Physical Exam Vital Signs: Temperature 99.2 F Pulse Rate [Apical] 59 Pulse Rate 59 Respiratory Rate 22 Blood Pressure [Right Arm] 169/75 Blood Pressure [Left Arm] 168/86 Blood Pressure 158/72 O2 Sat by Pulse Oximetry 99 Oriented: Normal Eyes: Normal Ear: Normal Nose: Normal Throat: Normal Respiratory: Diminished Throughout Cardiovascular: Normal : Normal Auscultation: Bowel Sounds: Normal Palpation: Normal Tenderness: Diffuse, Mild. negative: Rebound, Guarding, Rigidity Skin: Normal Musculoskeletal: Normal Psychiatric: Normal Mood Description: Calm Affect: Normal Speech Pattern: Clear - Allergies Allergies/Adverse Reactions: Allergies Allergy/AdvReac Type Severity Reaction Status Date / Time hydrocodone AdvReac Verified 07/22/19 09:27
== END 2019-07-24 14:10 | disposition home or self-care (01) ==
LOC: ER 09:21 → ICU 09:21 → ER 14:28
PROVIDERS: ADMIT Surgery; ATTEND Surgery
PROC: APPYLAP (ICD-10-PCS; 2019-07-22 15:00)
DX: K35.890 Other acute appendicitis without perforation or gangrene; J44.9 Chronic obstructive pulmonary disease, unspecified; E11.65 Type 2 diabetes mellitus with hyperglycemia; I25.10 Atherosclerotic heart disease of native coronary artery without angina pectoris; R94.31 Abnormal electrocardiogram [ECG] [EKG]; R26.89 Other abnormalities of gait and mobility; Z79.01 Long term (current) use of anticoagulants; N18.9 Chronic kidney disease, unspecified; I12.9 Hypertensive chronic kidney disease with stage 1 through stage 4 chronic kidney disease, or unspecified chronic kidney disease; R10.84 Generalized abdominal pain
CPT/HCPCS: 36415; 71010; 71045; 74176; 80053; 81001; 82150; 83690; 85025; 85610; 85730; 93005; 94640; 96360; 96361; 96365; 96367; 96372; 96374; 96375; 97161; 99100; 99284; A4216; A4222; G0378; J0330; J0461; J1170; J1650; J1815; J1885; J2250; J2405; J2543; J2704; J2710; J3490; J7030; J7050; J7613; S5010